=== PATIENT | female | born 1985 | race Caucasian/White ===

== ENCOUNTER 2019-04-15 14:47 | Outpatient (CLI) | payer BC ==
--- NOTE | 2019-04-15 15:33 | MMO ---
Bilateral MAMMO Bilat Diag [facility]. CLINICAL HISTORY: Patient is 33 years old and is seen for diagnostic exam,lump or thickening in the right breast at 10 o'clock and pain in the upper-outer region of the right breast. The patient has the following family history of breast cancer: maternal grandmother, at age 67. VIEWS: The views performed were: bilateral craniocaudal with tomosynthesis; bilateral mediolateral oblique with tomosynthesis; and bilateral mediolateral with tomosynthesis. FILMS COMPARED: The present examination has been compared to a prior imaging study performed at [facility] on 04/15/2019. This study has been interpreted with the assistance of computer-aided detection. MAMMOGRAM FINDINGS: The breasts are extremely dense, which may lower the sensitivity of mammography. There are no suspicious masses, suspicious calcifications, or new areas of architectural distortion. Dense tissue is noted in the area of palpable concern on mammographic and sonographic assessment. IMPRESSION: THERE IS NO MAMMOGRAPHIC EVIDENCE OF MALIGNANCY. A ROUTINE FOLLOW-UP MAMMOGRAM AT AGE 39 IS RECOMMENDED. THE RESULTS OF THIS EXAM WERE SENT TO THE PATIENT. ACR BI-RADS Category 1 - Negative MAMMOGRAPHY NOTE: 1. A negative mammogram report should not delay a biopsy if a dominant of clinically suspicious mass is present. 2. Approximately 10% to 15% of breast cancers are not detected by mammography. 3. Adenosis and dense breasts may obscure an underlying neoplasm. Reported by: RONA ALVAREZ MD Electonically Signed: [id number]
--- NOTE | 2019-04-15 15:40 | ULT ---
FOCUSED ULTRASOUND OF RIGHT BREAST: 04/15/19 COMPARISON: None. HISTORY: Palpable abnormality in the outer upper right breast. FINDINGS: Focused ultrasound in the area of palpable concern obtained. In this region, there is diffuse dense b reast tissue. There is no dominant mass lesion or abnormal shadowing. IMPRESSION: Grossly unremarkable focused ultrasound of the right breast. There is very dense breast tissue in the area of palpable concern. Negative imaging should not delay biopsy of a clinically suspicious abnorm ality. POS: BG
== END 2019-04-15 14:48 | disposition home or self-care (01) ==
LOC: BICMAMMO 14:47
PROVIDERS: ATTEND Family Medicine
DX: N63.11 Unspecified lump in the right breast, upper outer quadrant (principal); R92.2 Inconclusive mammogram
CPT/HCPCS: 77066; G0279

== ENCOUNTER 2022-10-24 08:09 | Outpatient (CLI) | payer BC | END 2022-10-24 08:10 | disposition home or self-care (01) | LOC: BICMAMMO 08:09 | DX: N63.0 Unspecified lump in unspecified breast (principal); Z98.890 Other specified postprocedural states | CPT/HCPCS: 77066; G0279 ==